=== PATIENT | male | born 1985 | race Caucasian/White ===

== ENCOUNTER 2016-10-30 23:54 | Emergency (ER) | payer SELFPAY ==
[~2016-10-30] VITALS: Ht 187.9 cm; Wt 127.0 kg
[~2016-10-30 23:54] MED LIST: AMOXICILLIN500 M2 PO; AMOXICILLIN500 MG PO; AMOXIL500 MG PO; ANAPROX DS550 MG PO; ATARAX25 MG PO; BACTRIM DS 8001 TA1 PO; BENADRYL50 MG PO; CIPRO500 MG PO; CLARITIN10 MG PO; CLEOCIN150 MG PO; CLINDAMYCIN HC300 MG PO; CLINDAMYCIN150 MG PO; COMPOUND W TP; DAYPRO600 M1 PO; ELIMITE 5%60 GM T; FIORICET 325 MG1 TAB PO; FLEXERIL10 MG PO; FLEXERIL5 MG PO; FLONASE ALLERG9.9 ML NAS; HYDROCODONE BIT1 T11 PO; IBU800 MG PO; IBUPROFEN 30 M800 MG; IBUPROFEN PO; KEFLEX PO; KEFLEX500 MG PO; KENALOG 0.1%80 GM PO; LOMOTIL 0.025 M1 TAB PO; MEDROL DOSEPAK4 MG PO; MOTRIN800 MG PO; Motrin,Rufen800 MG PO; NAPROSYN500 MG PO; NKHM; NORCO 5-325 TA1 EACH PO; ORPHENADRINE C100 M1 PO; PHENERGAN W/DM120 ML PO; PREDNICOT20 MG PO; PREDNISONE10 MG PO; PREDNISONE20 MG PO; PREDNISONE50 MG PO; PROAIR HFA0.09 MG/AC IH; ROBAXIN500 MG PO; ROBAXIN750 MG PO; ROBITUSSIN AC 110 ML PO; TORADOL10 MG PO; TRAMADOL HCL50 MG PO; TYLENOL W/CODEI1 TA2 PO; VIBRAMYCIN100 MG PO; VICODIN 5/500 505 MG PO; VICODIN 500 MG-1 TAB PO; VICODIN1 TAB PO; VISTARIL50 MG PO; Veetids,V-Cill500 MG PO; ZITHROMAX Z PA250 MG PO; ZOFRAN ODT4 MG SL; ZOFRAN ODT8 MG PO; ZYRTEC10 M2 PO; [UNRECOGNIZED DRUG - OTHER] IV; [UNRECOGNIZED DRUG - REMARK]
[2016-10-31] MEDS ORDERED: VOLTAREN50 M1 PO (01:10)
== END 2016-10-31 01:20 | disposition home or self-care (01) ==
LOC: ED 23:54
DX: S01.01XA Laceration without foreign body of scalp, initial encounter (principal); Y04.0XXA Assault by unarmed brawl or fight, initial encounter; Y93.9 Activity, unspecified; Y92.9 Unspecified place or not applicable; Y99.9 Unspecified external cause status

== ENCOUNTER 2017-02-08 16:46 | Emergency (ER) | payer SELFPAY ==
[~2017-02-08] VITALS: Wt 127.0 kg
[~2017-02-08 16:46] MED LIST changes: +VOLTAREN50 M1 PO
[2017-02-08] MEDS ORDERED: AMOXICILLIN500 M2 PO (17:08)
== END 2017-02-08 17:37 | disposition home or self-care (01) ==
LOC: ED 16:46
DX: K08.89 Other specified disorders of teeth and supporting structures (principal); Z88.6 Allergy status to analgesic agent; Z88.8 Allergy status to other drugs, medicaments and biological substances

== ENCOUNTER 2017-03-29 13:57 | Emergency (ER) | payer SELFPAY ==
[~2017-03-29] VITALS: Ht 187.9 cm; Wt 127.0 kg
== END 2017-03-29 14:09 | disposition home or self-care (01) ==
LOC: ED 13:57
DX: S05.01XA Injury of conjunctiva and corneal abrasion without foreign body, right eye, initial encounter (principal); S05.02XA Injury of conjunctiva and corneal abrasion without foreign body, left eye, initial encounter; Z79.899 Other long term (current) drug therapy; Z88.6 Allergy status to analgesic agent; X58.XXXA Exposure to other specified factors, initial encounter; Y93.89 Activity, other specified; Y92.89 Other specified places as the place of occurrence of the external cause; Y99.8 Other external cause status

== ENCOUNTER 2017-04-18 14:02 | Emergency (ER) | payer SELFPAY ==
[~2017-04-18] VITALS: Wt 127.0 kg
[2017-04-18] MEDS ORDERED: CEPHALEXIN500 M1 PO (14:19)
[2017-04-18] MEDS ORDERED: BACTRIM DS 8001 TA1 PO (14:19)
== END 2017-04-18 14:26 | disposition home or self-care (01) ==
LOC: ED 14:02
DX: L02.211 Cutaneous abscess of abdominal wall (principal); Z88.6 Allergy status to analgesic agent

== ENCOUNTER 2017-05-18 19:04 | Emergency (ER) | payer SELFPAY ==
[~2017-05-18] VITALS: Ht 187.9 cm; Wt 127.0 kg
[~2017-05-18 19:04] MED LIST changes: +CEPHALEXIN500 M1 PO
[2017-05-18] MEDS ORDERED: AMOXICILLIN500 M2 PO (19:26)
[2017-05-18] MEDS ORDERED: NAPROSYN500 MG PO (19:26)
== END 2017-05-18 19:37 | disposition home or self-care (01) ==
LOC: ED 19:04
DX: K08.89 Other specified disorders of teeth and supporting structures (principal); Z88.6 Allergy status to analgesic agent; Z88.8 Allergy status to other drugs, medicaments and biological substances

== ENCOUNTER 2017-06-06 18:01 | Emergency (ER) | payer SELFPAY ==
[~2017-06-06] VITALS: Ht 187.9 cm; Wt 127.0 kg
[2017-06-06 18:56] LABS: BASO # 0.1 10*3/uL (0.0-0.1); BASO % 0.7 % (0.0-1.0); EOS # 0.2 10*3/uL (0.0-0.4); EOS % 1.9 % (1.0-4.0); HEMATOCRIT 38.2 % (42.0-52.0); HEMOGLOBIN 12.3 g/dl (14.0-18.0); LYMPH # 3.7 10*3/uL (1.3-4.4); LYMPH % 30.4 % (27.0-41.0); MEAN CELL VOLUME 88.4 fl (80.0-94.0); MEAN CORPUSCULAR HGB 28.5 pg (27.0-31.0); MEAN CORPUSCULAR HGB CONC 32.2 g/dl (33.0-37.0); MEAN PLATELET VOLUME 10.1 fl (9.6-12.3); MONO # 0.7 10*3/uL (0.1-1.0); MONO % 5.8 % (3.0-9.0); NEUT # 7.4 10*3/uL (2.3-7.9); NEUT % 60.9 % (47.0-73.0); PLATELET COUNT AUTOMATED 322 10*3/uL (130-400); RED BLOOD COUNT 4.32 10*6/uL (4.50-5.90); WHITE BLOOD COUNT 12.2 10*3/uL (4.8-10.8)
[2017-06-06 19:13] LABS: ALBUMIN 3.4 gm/dl (3.1-4.5); ALKALINE PHOSPHATASE 77 U/L (45-117); BILIRUBIN, TOTAL 0.2 mg/dl (0.2-1.0); BUN 13 mg/dl (7-24); CARBON DIOXIDE 29 mmol/L (21-32); CHLORIDE 103 mmol/L (98-107); EST GLOM FILT AFRICAN AMERICAN > 60 ml/min; GLUCOSE 131 mg/dL (65-99); POTASSIUM 3.6 mmol/L (3.5-5.1); SGOT/AST 15 IU/L (3-35); SGPT/ALT 41 U/L (12-78); SODIUM 139 mmol/L (136-145); TOTAL PROTEIN 7.2 gm/dL (6.4-8.2)
[2017-06-06] MEDS ORDERED: Zofran4 MG PO (19:39)
== END 2017-06-06 20:15 | disposition home or self-care (01) ==
LOC: ED 18:01
PROVIDERS: Emergency Medicine
DX: K52.9 Noninfective gastroenteritis and colitis, unspecified (principal); Z88.6 Allergy status to analgesic agent; Z88.8 Allergy status to other drugs, medicaments and biological substances; Z85.3 Personal history of malignant neoplasm of breast

== ENCOUNTER 2017-08-06 20:22 | Emergency (ER) | payer SELFPAY ==
[~2017-08-06] VITALS: Ht 187.9 cm; Wt 127.0 kg
[~2017-08-06 20:22] MED LIST changes: +Zofran4 MG PO
[2017-08-06] MEDS ORDERED: PREDNISONE10 MG PO (20:53)
== END 2017-08-06 22:00 | disposition home or self-care (01) ==
LOC: ED 20:22
DX: L25.5 Unspecified contact dermatitis due to plants, except food (principal); Z88.6 Allergy status to analgesic agent; Z88.8 Allergy status to other drugs, medicaments and biological substances

== ENCOUNTER 2018-01-02 21:19 | Emergency (ER) | payer OTHER ==
[~2018-01-02] VITALS: Ht 187.9 cm; Wt 127.0 kg
[2018-01-02] MEDS ORDERED: NORCO 5-325 TA1 EACH PO (21:42)
[2018-01-02] MEDS ORDERED: CLINDAMYCIN HC300 MG PO (21:42)
== END 2018-01-02 21:26 | disposition home or self-care (01) ==
LOC: ED 21:19
DX: K02.9 Dental caries, unspecified (principal); K04.01 Reversible pulpitis; Z88.5 Allergy status to narcotic agent

== ENCOUNTER 2018-02-11 11:50 | Emergency (ER) | payer OTHER ==
[~2018-02-11] VITALS: Ht 187.9 cm; Wt 127.0 kg
== END 2018-02-11 12:05 | disposition home or self-care (01) ==
LOC: ED 11:50
DX: K08.89 Other specified disorders of teeth and supporting structures (principal); Z88.8 Allergy status to other drugs, medicaments and biological substances; Z88.5 Allergy status to narcotic agent

== ENCOUNTER 2018-03-13 12:22 | Emergency (ER) | payer OTHER ==
[~2018-03-13] VITALS: Ht 187.9 cm; Wt 127.0 kg
== END 2018-03-13 13:57 | disposition home or self-care (01) ==
LOC: ED 12:22
DX: G43.009 Migraine without aura, not intractable, without status migrainosus (principal); E66.01 Morbid (severe) obesity due to excess calories; Z98.890 Other specified postprocedural states; Z88.6 Allergy status to analgesic agent; Z88.8 Allergy status to other drugs, medicaments and biological substances; Z79.899 Other long term (current) drug therapy

== ENCOUNTER 2018-04-10 09:33 | Emergency (ER) | payer OTHER ==
[~2018-04-10] VITALS: Ht 187.9 cm; Wt 127.0 kg
[2018-04-10] MEDS ORDERED: KEFLEX500 M1 PO (09:35)
[2018-04-10] MEDS ORDERED: SEPTDS PO (09:35)
== END 2018-04-10 10:03 | disposition home or self-care (01) ==
LOC: ED 09:33
DX: L02.214 Cutaneous abscess of groin (principal); R03.0 Elevated blood-pressure reading, without diagnosis of hypertension; G43.909 Migraine, unspecified, not intractable, without status migrainosus; Z98.890 Other specified postprocedural states; Z88.6 Allergy status to analgesic agent; Z88.8 Allergy status to other drugs, medicaments and biological substances

== ENCOUNTER 2018-04-28 21:48 | Emergency (ER) | payer OTHER ==
[~2018-04-28] VITALS: Ht 187.9 cm; Wt 127.0 kg
[~2018-04-28 21:48] MED LIST changes: +KEFLEX500 M1 PO; +SEPTDS PO
[2018-04-28] MEDS ORDERED: AMOXICILLIN500 M2 PO (22:25)
== END 2018-04-28 22:26 | disposition home or self-care (01) ==
LOC: ED 21:48
DX: K08.89 Other specified disorders of teeth and supporting structures (principal); Z88.6 Allergy status to analgesic agent; Z88.8 Allergy status to other drugs, medicaments and biological substances

== ENCOUNTER 2018-08-31 17:29 | Emergency (ER) | payer SELFPAY ==
[~2018-08-31] VITALS: Ht 187.9 cm; Wt 127.0 kg
[2018-08-31] MEDS ORDERED: CLINDAMYCIN HC300 MG PO (17:49)
[2018-09-12] MEDS ORDERED: ANAPROX DS550 MG PO (19:16)
[2018-09-12] MEDS ORDERED: CEFADROXIL500 M1 PO (19:16)
== END 2018-08-31 18:05 | disposition home or self-care (01) ==
LOC: ED 17:29
DX: K08.89 Other specified disorders of teeth and supporting structures (principal); Z88.6 Allergy status to analgesic agent; Z88.8 Allergy status to other drugs, medicaments and biological substances

== ENCOUNTER 2018-09-27 17:55 | Emergency (ER) | payer SELFPAY ==
[~2018-09-27] VITALS: Wt 127.0 kg
[~2018-09-27 17:55] MED LIST changes: +CEFADROXIL500 M1 PO
== END 2018-09-27 20:17 | disposition home or self-care (01) ==
LOC: ED 17:55
DX: G43.909 Migraine, unspecified, not intractable, without status migrainosus (principal); Z88.6 Allergy status to analgesic agent; Z88.8 Allergy status to other drugs, medicaments and biological substances

== ENCOUNTER 2019-02-22 14:15 | Emergency (ER) | payer OTHER ==
[~2019-02-22] VITALS: Ht 187.9 cm; Wt 127.0 kg
[2019-02-22] MEDS ORDERED: CLINDAMYCIN HC300 MG PO (14:28)
== END 2019-02-22 14:37 | disposition home or self-care (01) ==
LOC: ED 14:15
DX: L02.01 Cutaneous abscess of face (principal); L03.211 Cellulitis of face; Z88.6 Allergy status to analgesic agent; Z88.8 Allergy status to other drugs, medicaments and biological substances

== ENCOUNTER 2019-06-28 04:35 | Emergency (ER) | payer SELFPAY ==
[~2019-06-28] VITALS: Ht 187.9 cm; Wt 127.0 kg
[2019-06-28] MEDS ORDERED: PREDNISONE10 MG PO (04:56)
== END 2019-06-28 05:11 | disposition home or self-care (01) ==
LOC: ED 04:35
DX: L23.7 Allergic contact dermatitis due to plants, except food (principal)

== ENCOUNTER → 2020-10-01 | Outpatient (CLI) | payer SELFPAY | END | disposition home or self-care (01) | LOC: COVID19 13:30 | PROVIDERS: ATTEND Student in an Organized Health Care Education/Training Program | DX: Z20.828 Contact with and (suspected) exposure to other viral communicable diseases (principal) ==

== ENCOUNTER → 2020-10-16 | Outpatient (CLI) | payer SELFPAY | END | disposition home or self-care (01) | LOC: COVID19 13:58 | PROVIDERS: ATTEND Internal Medicine | DX: R43.0 Anosmia (principal); Z20.828 Contact with and (suspected) exposure to other viral communicable diseases ==

== ENCOUNTER 2021-10-20 11:45 | Emergency (ER) | payer SELFPAY ==
[~2021-10-20] VITALS: Wt 136.1 kg
[2021-10-20] MEDS ORDERED: CEPHALEXIN500 M1 PO (12:46)
[2021-10-20] MEDS ORDERED: SEPTDS PO (12:46)
== END 2021-10-20 13:00 | disposition home or self-care (01) ==
LOC: ED 11:45
DX: L02.213 Cutaneous abscess of chest wall (principal)

== ENCOUNTER 2021-10-26 14:30 | Emergency (ER) | payer SELFPAY ==
[~2021-10-26] VITALS: Wt 136.1 kg
[2021-10-26] MEDS ORDERED: AMOXICILLIN500 M2 PO (14:46)
== END 2021-10-26 15:00 | disposition home or self-care (01) ==
LOC: ED 14:30
DX: K08.89 Other specified disorders of teeth and supporting structures (principal)

== ENCOUNTER 2022-01-28 03:28 | Emergency (ER) | payer SELFPAY ==
[~2022-01-28] VITALS: Ht 187.9 cm; Wt 136.1 kg
[2022-01-28] MEDS ORDERED: PENICILLIN VK500 MG PO (05:17)
== END 2022-01-28 05:25 | disposition home or self-care (01) ==
LOC: ED 03:28
DX: K08.89 Other specified disorders of teeth and supporting structures (principal); Z88.8 Allergy status to other drugs, medicaments and biological substances; Z98.890 Other specified postprocedural states

== ENCOUNTER 2022-02-25 18:29 | Emergency (ER) | payer SELFPAY ==
[~2022-02-25] VITALS: Ht 187.9 cm; Wt 136.1 kg
[~2022-02-25 18:29] MED LIST changes: +PENICILLIN VK500 MG PO
[2022-02-25] MEDS ORDERED: METOPROLOL TAR100 M1 PO (18:44)
[2022-02-25] MEDS ORDERED: SEPTDS PO (18:58)
[2022-02-25] MEDS ORDERED: CEPHALEXIN500 M1 PO (18:58)
== END 2022-02-25 19:23 | disposition home or self-care (01) ==
LOC: ED 18:29
DX: L02.213 Cutaneous abscess of chest wall (principal); Z88.6 Allergy status to analgesic agent; Z88.8 Allergy status to other drugs, medicaments and biological substances; Z79.899 Other long term (current) drug therapy

== ENCOUNTER 2022-04-26 12:44 | Emergency (ER) | payer SELFPAY ==
[~2022-04-26 12:44] MED LIST changes: +METOPROLOL TAR100 M1 PO
[2022-04-26] MEDS ORDERED: AUGMENTIN 875-875 MG PO (13:03)
== END 2022-04-26 13:21 | disposition home or self-care (01) ==
LOC: ED 12:44
DX: K04.7 Periapical abscess without sinus (principal); Z88.6 Allergy status to analgesic agent; Z88.8 Allergy status to other drugs, medicaments and biological substances

== ENCOUNTER 2022-12-19 09:48 | Emergency (ER) | payer OTHER ==
[~2022-12-19] VITALS: Ht 182.8 cm; Wt 136.1 kg
[~2022-12-19 09:48] MED LIST changes: +AUGMENTIN 875-875 MG PO
[2022-12-19] MEDS ORDERED: HYDROCODONE-AC1 EAC1 PO (10:11)
[2022-12-19] MEDS ORDERED: AMOX-CLAV 875-1 EACH PO (10:11)
[2022-12-19] MEDS ORDERED: ZESTRIL20 MG PO (10:11)
== END 2022-12-19 10:45 | disposition home or self-care (01) ==
LOC: ED 09:48
DX: S02.5XXA Fracture of tooth (traumatic), initial encounter for closed fracture (principal); K04.7 Periapical abscess without sinus; I10 Essential (primary) hypertension; Z88.8 Allergy status to other drugs, medicaments and biological substances; Z98.890 Other specified postprocedural states; X58.XXXA Exposure to other specified factors, initial encounter; Y93.89 Activity, other specified; Y92.89 Other specified places as the place of occurrence of the external cause; Y99.8 Other external cause status

== ENCOUNTER 2023-01-03 16:33 | Emergency (ER) | payer OTHER ==
[~2023-01-03] VITALS: Wt 136.1 kg
[~2023-01-03 16:33] MED LIST changes: +AMOX-CLAV 875-1 EACH PO; +HYDROCODONE-AC1 EAC1 PO; +ZESTRIL20 MG PO
[2023-01-03] MEDS ORDERED: CLEOCIN HCL300 MG PO (17:49)
== END 2023-01-03 18:04 | disposition home or self-care (01) ==
LOC: ED 16:33
DX: L72.9 Follicular cyst of the skin and subcutaneous tissue, unspecified (principal); Z88.8 Allergy status to other drugs, medicaments and biological substances

== ENCOUNTER 2023-02-28 17:45 | Emergency (ER) | payer OTHER ==
[~2023-02-28] VITALS: Ht 187.9 cm; Wt 136.1 kg
[~2023-02-28 17:45] MED LIST changes: +CLEOCIN HCL300 MG PO
[2023-02-28] MEDS ORDERED: PENICILLIN-VK500 MG PO (19:07)
== END 2023-02-28 19:13 | disposition home or self-care (01) ==
LOC: ED 17:45
DX: K04.7 Periapical abscess without sinus (principal); Z88.8 Allergy status to other drugs, medicaments and biological substances

== ENCOUNTER 2023-07-05 17:50 | Emergency (ER) | payer OTHER ==
[~2023-07-05] VITALS: Ht 185.4 cm; Wt 136.1 kg
[~2023-07-05 17:50] MED LIST changes: +PENICILLIN-VK500 MG PO
[2023-07-05 18:37] LABS: BASO # 0.1 10*3/uL (0.0-0.1); BASO % 0.6 % (0.0-1.0); EOS # 0.1 10*3/uL (0.0-0.4); EOS % 0.7 % (1.0-4.0); HEMATOCRIT 37.5 % (42.0-52.0); LYMPH # 2.5 10*3/uL (1.3-4.4); LYMPH % 28.4 % (27.0-41.0); MEAN CELL VOLUME 78.8 fl (80.0-94.0); MEAN CORPUSCULAR HGB 23.9 pg (27.0-31.0); MEAN CORPUSCULAR HGB CONC 30.4 g/dl (33.0-37.0); MEAN PLATELET VOLUME 9.8 fl (9.6-12.3); MONO # 1.2 10*3/uL (0.1-1.0); MONO % 13.9 % (3.0-9.0); NEUT % 55.8 % (47.0-73.0); PLATELET COUNT AUTOMATED 391 10*3/uL (130-400); RED BLOOD COUNT 4.76 10*6/uL (4.50-5.90); RED CELL DISTRI WIDTH 17.5 % (0-14.5); WHITE BLOOD COUNT 8.9 10*3/uL (4.8-10.8)
[2023-07-05 19:00] LABS: ALKALINE PHOSPHATASE 78 U/L (46-116); BUN 13 mg/dl (9-23); CHLORIDE 101 mmol/L (98-107); LIPASE 30 U/L (12-53); POTASSIUM 3.4 mmol/L (3.4-5.1); SGPT/ALT 124 U/L (10-49); TOTAL PROTEIN 7.4 gm/dL (6.0-8.0)
[2023-07-05 19:00] LABS: ACT PARTIAL THROMBO TIME 24.8 SECONDS (20.0-32.1)
[2023-07-05] MEDS ORDERED: Meclizine25 MG PO (21:16)
== END 2023-07-05 21:39 | disposition home or self-care (01) ==
LOC: ED 17:50
PROVIDERS: Physician Assistant Medical
DX: J06.9 Acute upper respiratory infection, unspecified (principal); G47.30 Sleep apnea, unspecified; G43.909 Migraine, unspecified, not intractable, without status migrainosus; I10 Essential (primary) hypertension; Z88.8 Allergy status to other drugs, medicaments and biological substances; Z98.890 Other specified postprocedural states

== ENCOUNTER 2023-08-15 16:33 | Emergency (ER) | payer OTHER ==
[~2023-08-15] VITALS: Ht 187.9 cm; Wt 136.1 kg
[~2023-08-15 16:33] MED LIST changes: +Meclizine25 MG PO
[2023-08-15 18:03] LABS: HEMATOCRIT 35.8 % (42.0-52.0); MEAN CELL VOLUME 80.3 fl (80.0-94.0); MEAN CORPUSCULAR HGB 24.2 pg (27.0-31.0); MEAN CORPUSCULAR HGB CONC 30.2 g/dl (33.0-37.0); MEAN PLATELET VOLUME 10.6 fl (9.6-12.3); PLATELET COUNT AUTOMATED 317 10*3/uL (130-400); RED BLOOD COUNT 4.46 10*6/uL (4.50-5.90); RED CELL DISTRI WIDTH 17.2 % (0-14.5); WHITE BLOOD COUNT 12.2 10*3/uL (4.8-10.8)
[2023-08-15 18:15] LABS: MANUAL DIFF REFLEX YES
[2023-08-15 18:23] LABS: ALKALINE PHOSPHATASE 79 U/L (46-116); BUN 9 mg/dl (9-23); CHLORIDE 102 mmol/L (98-107); POTASSIUM 3.7 mmol/L (3.4-5.1); SGPT/ALT 76 U/L (10-49); TOTAL PROTEIN 7.5 gm/dL (6.0-8.0)
[2023-08-15 18:34] LABS: TOTAL CELLS COUNTED 100 #CELLS
[2023-08-15 18:35] LABS: PLATELET SUFFICIENCY NORMAL (NORMAL)
== END 2023-08-15 19:36 | disposition home or self-care (01) ==
LOC: ED 16:33
PROVIDERS: Internal Medicine
DX: I11.0 Hypertensive heart disease with heart failure (principal); I50.9 Heart failure, unspecified; R60.0 Localized edema; G43.909 Migraine, unspecified, not intractable, without status migrainosus; R79.89 Other specified abnormal findings of blood chemistry; D72.829 Elevated white blood cell count, unspecified; D64.9 Anemia, unspecified; Z88.8 Allergy status to other drugs, medicaments and biological substances; Z98.890 Other specified postprocedural states; F17.290 Nicotine dependence, other tobacco product, uncomplicated

== ENCOUNTER 2023-11-15 16:49 | Emergency (ER) | payer OTHER ==
[~2023-11-15] VITALS: Ht 187.9 cm; Wt 136.1 kg
[2023-11-15] MEDS ORDERED: VIBRA-TAB100 MG PO (17:02)
== END 2023-11-15 20:04 | disposition home or self-care (01) ==
LOC: ED 16:49
DX: L02.11 Cutaneous abscess of neck (principal); G43.909 Migraine, unspecified, not intractable, without status migrainosus; I10 Essential (primary) hypertension; Z88.8 Allergy status to other drugs, medicaments and biological substances; Z98.890 Other specified postprocedural states

== ENCOUNTER 2023-12-27 16:16 | Emergency (ER) | payer OTHER ==
[~2023-12-27] VITALS: Ht 187.9 cm; Wt 136.1 kg
[~2023-12-27 16:16] MED LIST changes: +VIBRA-TAB100 MG PO
[2023-12-27] MEDS ORDERED: AMOXICILLIN875 MG PO (16:47)
== END 2023-12-27 17:12 | disposition home or self-care (01) ==
LOC: ED 16:16
DX: K04.7 Periapical abscess without sinus (principal); G43.909 Migraine, unspecified, not intractable, without status migrainosus; I10 Essential (primary) hypertension; Z88.8 Allergy status to other drugs, medicaments and biological substances; Z98.890 Other specified postprocedural states

== ENCOUNTER 2024-01-01 09:20 | Emergency (ER) | payer OTHER ==
[~2024-01-01] VITALS: Ht 187.9 cm; Wt 136.1 kg
[~2024-01-01 09:20] MED LIST changes: +AMOXICILLIN875 MG PO
[2024-01-01] MEDS ORDERED: AMOX-CLAV 875-1 EACH PO (09:31)
== END 2024-01-01 09:36 | disposition home or self-care (01) ==
LOC: ED 09:20
DX: K04.7 Periapical abscess without sinus (principal); K02.9 Dental caries, unspecified; G43.909 Migraine, unspecified, not intractable, without status migrainosus; I10 Essential (primary) hypertension; Z88.8 Allergy status to other drugs, medicaments and biological substances; Z98.890 Other specified postprocedural states

== ENCOUNTER 2024-03-10 12:47 | Emergency (ER) | payer OTHER ==
[~2024-03-10] VITALS: Ht 187.9 cm; Wt 136.1 kg
[2024-03-10] MEDS ORDERED: AVPAK AZITHROM250 M1 PO (13:23)
[2024-03-10] MEDS ORDERED: LASIX20 MG PO (13:23)
== END 2024-03-10 13:26 | disposition home or self-care (01) ==
LOC: ED 12:47
DX: J40 Bronchitis, not specified as acute or chronic (principal); M79.89 Other specified soft tissue disorders; Z88.8 Allergy status to other drugs, medicaments and biological substances; Z88.6 Allergy status to analgesic agent; Z79.2 Long term (current) use of antibiotics; Z98.890 Other specified postprocedural states; Z85.3 Personal history of malignant neoplasm of breast

== ENCOUNTER 2024-05-06 12:25 | Emergency (ER) | payer OTHER ==
[~2024-05-06] VITALS: Ht 187.9 cm; Wt 136.1 kg
[~2024-05-06 12:25] MED LIST changes: +AVPAK AZITHROM250 M1 PO; +LASIX20 MG PO
[2024-05-06] MEDS ORDERED: FUROSEMIDE 40 MG TAB PO ONE ×2 (13:05→13:35)
[2024-05-06 13:18] LABS: BASO # 0.1 10*3/uL (0.0-0.1); BASO % 0.6 % (0.0-1.0); EOS # 0.2 10*3/uL (0.0-0.4); EOS % 1.7 % (1.0-4.0); HEMATOCRIT 36.7 % (42.0-52.0); LYMPH # 2.1 10*3/uL (1.3-4.4); LYMPH % 18.6 % (27.0-41.0); MEAN CELL VOLUME 80.3 fl (80.0-94.0); MEAN CORPUSCULAR HGB 22.3 pg (27.0-31.0); MEAN CORPUSCULAR HGB CONC 27.8 g/dl (33.0-37.0); MEAN PLATELET VOLUME 9.3 fl (9.6-12.3); MONO # 0.7 10*3/uL (0.1-1.0); MONO % 6.3 % (3.0-9.0); NEUT # 8.3 10*3/uL (2.3-7.9); NEUT % 71.8 % (47.0-73.0); PLATELET COUNT AUTOMATED 334 10*3/uL (130-400); RED BLOOD COUNT 4.57 10*6/uL (4.50-5.90); RED CELL DISTRI WIDTH 17.5 % (0-14.5); WHITE BLOOD COUNT 11.5 10*3/uL (4.8-10.8)
[2024-05-06] MEDS ORDERED: hydrALAZINE hydrochloride 20 MG/ML VIAL IV ONE (13:30)
[2024-05-06 13:40] LABS: ALKALINE PHOSPHATASE 87 U/L (46-116); BUN 7 mg/dl (9-23); CHLORIDE 98 mmol/L (98-107); POTASSIUM 3.7 mmol/L (3.4-5.1); SGPT/ALT 61 U/L (5-49); TOTAL PROTEIN 7.2 gm/dL (6.0-8.0)
[2024-05-06] MEDS ORDERED: LISINOPRIL 10 MG TAB PO ONE (13:40)
[2024-05-06] MEDS ORDERED: LASIX20 MG PO (14:13)
[2024-05-06] MEDS ORDERED: ZESTRIL10 MG PO (14:13)
== END 2024-05-06 14:47 | disposition home or self-care (01) ==
LOC: ED 12:25
PROVIDERS: Physician Assistant Medical
DX: I10 Essential (primary) hypertension (principal); D64.9 Anemia, unspecified; R09.89 Other specified symptoms and signs involving the circulatory and respiratory systems; R73.9 Hyperglycemia, unspecified; G43.909 Migraine, unspecified, not intractable, without status migrainosus; Z88.8 Allergy status to other drugs, medicaments and biological substances; Z88.6 Allergy status to analgesic agent; Z98.890 Other specified postprocedural states

== ENCOUNTER → 2024-05-23 | Outpatient (CLI) | payer OTHER ==
[~2024-05-23] MED LIST changes: +ZESTRIL10 MG PO
[2024-05-23 14:39] LABS: BASO # 0.1 10*3/uL (0.0-0.1); EOS # 0.2 10*3/uL (0.0-0.4); EOS % 1.8 % (1.0-4.0); HEMATOCRIT 36.2 % (42.0-52.0); LYMPH # 2.3 10*3/uL (1.3-4.4); LYMPH % 22.5 % (27.0-41.0); MEAN CELL VOLUME 78.5 fl (80.0-94.0); MEAN CORPUSCULAR HGB CONC 29.3 g/dl (33.0-37.0); MEAN PLATELET VOLUME 9.6 fl (9.6-12.3); MONO # 0.7 10*3/uL (0.1-1.0); NEUT # 6.8 10*3/uL (2.3-7.9); NEUT % 67.1 % (47.0-73.0); PLATELET COUNT AUTOMATED 384 10*3/uL (130-400); RED BLOOD COUNT 4.61 10*6/uL (4.50-5.90); RED CELL DISTRI WIDTH 18.6 % (0-14.5); WHITE BLOOD COUNT 10.1 10*3/uL (4.8-10.8)
[2024-05-23 15:06] LABS: ALKALINE PHOSPHATASE 89 U/L (46-116); BUN 12 mg/dl (9-23); CHLORIDE 101 mmol/L (98-107); CHOLESTEROL 190 mg/dL (<200); LDL CHOLESTEROL 124 mg/dL (9-159); POTASSIUM 3.9 mmol/L (3.4-5.1); SGPT/ALT 126 U/L (5-49); TOTAL PROTEIN 7.8 gm/dL (6.0-8.0); TRIGLYCERIDES 81 mg/dl (<150); VITAMIN D, 25-HYDROXY 23.1 ng/mL (30-100)
== END | disposition home or self-care (01) ==
LOC: RESCLI 01:58
PROVIDERS: Student in an Organized Health Care Education/Training Program; ATTEND Internal Medicine
DX: I10 Essential (primary) hypertension (principal); R53.83 Other fatigue; R60.0 Localized edema; M54.9 Dorsalgia, unspecified; F32.9 Major depressive disorder, single episode, unspecified; E66.9 Obesity, unspecified; Z68.35 Body mass index [BMI] 35.0-35.9, adult; Z79.899 Other long term (current) drug therapy; Z98.890 Other specified postprocedural states; Z83.79 Family history of other diseases of the digestive system; Z82.49 Family history of ischemic heart disease and other diseases of the circulatory system; Z88.8 Allergy status to other drugs, medicaments and biological substances

== ENCOUNTER → 2024-06-04 | Outpatient (CLI) | payer OTHER | END | disposition home or self-care (01) | LOC: RAD 14:18 | PROVIDERS: ATTEND Student in an Organized Health Care Education/Training Program | DX: M54.50 Low back pain, unspecified (principal) ==

== ENCOUNTER → 2024-06-11 | Outpatient (CLI) | payer OTHER | END | disposition home or self-care (01) | LOC: RESCLI 02:22 | PROVIDERS: ATTEND Internal Medicine | DX: I10 Essential (primary) hypertension (principal); E11.9 Type 2 diabetes mellitus without complications; E78.5 Hyperlipidemia, unspecified; R74.8 Abnormal levels of other serum enzymes; R60.0 Localized edema; M54.9 Dorsalgia, unspecified; R53.83 Other fatigue; Z79.899 Other long term (current) drug therapy; Z88.8 Allergy status to other drugs, medicaments and biological substances ==

== ENCOUNTER → 2024-06-21 | Outpatient (CLI) | payer OTHER | END | disposition home or self-care (01) | LOC: CARD 14:21 | PROVIDERS: ATTEND Internal Medicine | DX: I10 Essential (primary) hypertension (principal); R74.8 Abnormal levels of other serum enzymes; R60.0 Localized edema ==

== ENCOUNTER → 2024-06-25 | Outpatient (CLI) | payer OTHER | END | disposition home or self-care (01) | LOC: RESCLI 00:30 | PROVIDERS: ATTEND Family Medicine | DX: I10 Essential (primary) hypertension (principal); E11.9 Type 2 diabetes mellitus without complications; G47.33 Obstructive sleep apnea (adult) (pediatric); E78.5 Hyperlipidemia, unspecified; Z88.8 Allergy status to other drugs, medicaments and biological substances; Z82.49 Family history of ischemic heart disease and other diseases of the circulatory system; Z98.890 Other specified postprocedural states; Z79.899 Other long term (current) drug therapy ==

== ENCOUNTER → 2024-07-23 | Outpatient (CLI) | payer OTHER | END | disposition home or self-care (01) | LOC: RESCLI 02:57 | PROVIDERS: ATTEND Internal Medicine | DX: I10 Essential (primary) hypertension (principal); E11.9 Type 2 diabetes mellitus without complications; E78.5 Hyperlipidemia, unspecified; G47.33 Obstructive sleep apnea (adult) (pediatric); E88.810 Metabolic syndrome; Z88.8 Allergy status to other drugs, medicaments and biological substances; Z98.890 Other specified postprocedural states; Z79.899 Other long term (current) drug therapy ==

== ENCOUNTER → 2024-09-24 | Outpatient (CLI) | payer OTHER ==
[2024-09-24 17:21] LABS: ALKALINE PHOSPHATASE 69 U/L (46-116); BUN 20 mg/dl (9-23); CHLORIDE 98 mmol/L (98-107); POTASSIUM 4.4 mmol/L (3.4-5.1); SGPT/ALT 33 U/L (5-49); TOTAL PROTEIN 7.9 gm/dL (6.0-8.0)
== END | disposition home or self-care (01) ==
LOC: RESCLI 00:33
PROVIDERS: Student in an Organized Health Care Education/Training Program; ATTEND Internal Medicine
DX: I10 Essential (primary) hypertension (principal); E11.9 Type 2 diabetes mellitus without complications; E78.5 Hyperlipidemia, unspecified; E88.810 Metabolic syndrome; G47.33 Obstructive sleep apnea (adult) (pediatric); Z88.8 Allergy status to other drugs, medicaments and biological substances; Z79.899 Other long term (current) drug therapy; Z98.890 Other specified postprocedural states

== ENCOUNTER → 2024-11-26 | Outpatient (CLI) | payer OTHER | END | disposition home or self-care (01) | LOC: RESCLI 01:28 | PROVIDERS: ATTEND Internal Medicine | DX: I10 Essential (primary) hypertension (principal); E11.9 Type 2 diabetes mellitus without complications; E78.5 Hyperlipidemia, unspecified; E66.9 Obesity, unspecified; Z79.899 Other long term (current) drug therapy; Z88.8 Allergy status to other drugs, medicaments and biological substances ==

== ENCOUNTER 2024-12-10 15:46 | Emergency (ER) | payer OTHER ==
[~2024-12-10] VITALS: Ht 187.9 cm; Wt 176.9 kg
== END 2024-12-10 16:54 | disposition home or self-care (01) ==
LOC: ED 15:46
DX: B34.9 Viral infection, unspecified (principal); Z20.822 Contact with and (suspected) exposure to COVID-19; D64.9 Anemia, unspecified; I10 Essential (primary) hypertension; G43.909 Migraine, unspecified, not intractable, without status migrainosus; Z98.890 Other specified postprocedural states

== ENCOUNTER → 2025-02-21 | Outpatient (CLI) | payer OTHER ==
[2025-02-21 18:03] LABS: ALKALINE PHOSPHATASE 74 U/L (46-116); BUN 22 mg/dl (9-23); CHLORIDE 99 mmol/L (98-107); CHOLESTEROL 160 mg/dL (<200); LDL CHOLESTEROL 88 mg/dL (9-159); POTASSIUM 3.6 mmol/L (3.4-5.1); SGPT/ALT 16 U/L (5-49); TOTAL PROTEIN 7.9 gm/dL (6.0-8.0); TRIGLYCERIDES 113 mg/dl (<150)
[2025-02-22 07:06] LABS: HBsAG SCREEN Negative (Negative); HEP B CORE Ab, IgM Negative (Negative)
== END | disposition home or self-care (01) ==
LOC: RESCLI 03:47 → LAB 03:48 → RESCLI 03:48
PROVIDERS: Student in an Organized Health Care Education/Training Program; ATTEND Internal Medicine
DX: E11.9 Type 2 diabetes mellitus without complications (principal); E78.5 Hyperlipidemia, unspecified; R74.01 Elevation of levels of liver transaminase levels; E55.9 Vitamin D deficiency, unspecified

== ENCOUNTER → 2025-06-07 | Outpatient (CLI) | payer OTHER ==
[2025-06-07 15:56] LABS: BASO # 0.1 10*3/uL (0.0-0.1); BASO % 0.7 % (0.0-1.0); EOS # 0.1 10*3/uL (0.0-0.4); EOS % 0.8 % (1.0-4.0); MEAN CELL VOLUME 80.4 fl (80.0-94.0); MEAN CORPUSCULAR HGB 24.0 pg (27.0-31.0); MEAN PLATELET VOLUME 10.1 fl (9.6-12.3); MONO # 0.8 10*3/uL (0.1-1.0); MONO % 7.1 % (3.0-9.0); NEUT # 7.9 10*3/uL (2.3-7.9); NEUT % 65.9 % (47.0-73.0); NUCLEATED RED BLOOD CELL 0.0 % (0.0-0.0); NUCLEATED RED BLOOD CELL 0.0 10*3/uL (0.0-0.0); PLATELET COUNT AUTOMATED 437 10*3/uL (130-400); RED CELL DISTRI WIDTH 15.7 % (0-14.5)
[2025-06-07 16:24] LABS: LDL CHOLESTEROL 66 mg/dL (9-159)
== END | disposition home or self-care (01) ==
LOC: LAB 03:14 → RESCLI 03:14
PROVIDERS: Student in an Organized Health Care Education/Training Program; ATTEND Internal Medicine
DX: E11.9 Type 2 diabetes mellitus without complications (principal); E78.5 Hyperlipidemia, unspecified; I50.30 Unspecified diastolic (congestive) heart failure; R76.8 Other specified abnormal immunological findings in serum

== ENCOUNTER → 2025-09-06 | Outpatient (CLI) | payer OTHER | END | disposition home or self-care (01) | LOC: RESCLI 01:26 | PROVIDERS: ATTEND Family Medicine | DX: I11.0 Hypertensive heart disease with heart failure (principal); I50.30 Unspecified diastolic (congestive) heart failure; E11.9 Type 2 diabetes mellitus without complications; E78.5 Hyperlipidemia, unspecified; E55.9 Vitamin D deficiency, unspecified; E66.9 Obesity, unspecified; Z79.899 Other long term (current) drug therapy; Z88.8 Allergy status to other drugs, medicaments and biological substances ==